=== PATIENT | female | born 1940 | race Caucasian/White ===

== ENCOUNTER 2023-02-02 16:49 | Inpatient (IN) | payer MEDICARE, OTHER ==
[~2023-02-02 16:49] MED LIST: Iopamidol-370 76% 500 ML MDV (1 ML CHARGE) ONE
[2023-02-02] MEDS ORDERED: fentaNYL 50 mcg/mL 1 mL Vial ONE (17:19)
[2023-02-02] MEDS ORDERED: Ondansetron PF 4 MG/2 ML Vial ONE (17:26)
[2023-02-02 17:33] LABS: #Lymphocytes 1.5 thou/uL (1.20-3.40); #Neutrophils 9.2 thou/uL (1.40-6.50); %Basophils 0.4 % (0.0-1.0); %Eosinophils 0.1 % (0.0-10.0); %Lymphocytes 12.4 % (21.0-51.0); %Monocytes 8.9 % (0.0-10.0); %Neutrophils 78.3 % (42.0-75.0); Hemoglobin 12.4 g/dL (12.0-16.0); Mean Corpuscular HGB CONC 32.7 g/dL (32.0-36.0); Mean Corpuscular Hemoglobin 29.6 pg (27.0-31.0); Mean Corpuscular Volume 90.5 fl (78.0-98.0); Mean Platelet Volume 8.2 fL (7.4-10.4); Platelet Count 254 10x3/uL (130-400); White Blood Cell (WBC) Count 11.7 10x3/uL (4.8-10.8)
[2023-02-02 17:55] LABS: ALT (SGPT) 83 U/L (8-55); AST (SGOT) 95 U/L (5-34); Albumin 3.7 g/dL (3.4-4.8); Alkaline Phosphatase 77 U/L (40-110); Anion Gap 20 mmol/L (10-20); BUN (Urea Nitrogen) 56 mg/dL (9.8-20.1); Bilirubin, Direct 0.9 mg/dL (0.1-0.3); Bilirubin, Total 1.5 mg/dL (0.2-1.2); Calc. Creatinine Clearance 0 mL/min (70-130); Calcium 9.3 mg/dL (7.8-10.44); Carbon Dioxide 14 mmol/L (23-31); Chloride 104 mmol/L (98-107); Estimated GFR 52; Glucose 107 mg/dL (83-110); Potassium 4.8 mmol/L (3.5-5.1); Protein, Total 6.7 g/dL (5.8-8.1); Sodium 133 mmol/L (136-145)
[2023-02-02 18:33] LABS: CKMB 3.6 ng/mL (0-6.6)
[2023-02-02] MEDS ORDERED: Aspirin Chewable 81 MG TAB ONE (19:52)
[2023-02-02] MEDS ORDERED: Ondansetron ODT 4 MG TAB PO PRN (21:12)
[2023-02-02] MEDS ORDERED: Acetaminophen 650 MG Suppository PR PRN (21:12)
[2023-02-02] MEDS ORDERED: Ondansetron PF 4 MG/2 ML Vial IVP PRN (21:12)
[2023-02-02 22:09] LABS: Troponin I 0.304 ng/mL (< 0.028)
[2023-02-02 22:52] LABS: Lactic Acid 4.4 mmol/L (0.5-2.2)
[2023-02-02] MEDS ORDERED: Piperacillin/Tazobactam 3.375 GM in Sodium Chloride 0.9% 100 ML IVPB SCH (23:00)
[2023-02-03 01:07] LABS: Lactic Acid 1.9 mmol/L (0.5-2.2)
[2023-02-03 01:26] LABS: Troponin I 0.469 ng/mL (< 0.028)
[2023-02-03] MEDS: Piperacillin/Tazobactam 3.375 GM in Sodium Chloride 0.9% 100 ML IVPB SCH ×3 (03:47→20:37)
[2023-02-03 05:19] LABS: #Basophils 0.1 thou/uL (0.0-0.2); #Lymphocytes 1.1 thou/uL (1.20-3.40); #Monocytes 1.1 thou/uL (0.11-0.59); #Neutrophils 10.6 thou/uL (1.40-6.50); %Basophils 0.4 % (0.0-1.0); %Lymphocytes 8.8 % (21.0-51.0); %Monocytes 8.7 % (0.0-10.0); Hemoglobin 12.3 g/dL (12.0-16.0); Mean Corpuscular HGB CONC 33.9 g/dL (32.0-36.0); Mean Corpuscular Hemoglobin 30.8 pg (27.0-31.0); Mean Corpuscular Volume 90.7 fl (78.0-98.0); Mean Platelet Volume 8.4 fL (7.4-10.4); Platelet Count 249 10x3/uL (130-400); Red Blood Cell (RBC) Count 4.01 mill/uL (4.20-5.40); White Blood Cell (WBC) Count 12.9 10x3/uL (4.8-10.8)
[2023-02-03] MEDS: Acetaminophen 325 MG TAB PO PRN (05:21)
[2023-02-03 05:42] LABS: Anion Gap 20 mmol/L (10-20); BUN (Urea Nitrogen) 63 mg/dL (9.8-20.1); Calc. Creatinine Clearance 26 mL/min (70-130); Calcium 9.4 mg/dL (7.8-10.44); Carbon Dioxide 16 mmol/L (23-31); Chloride 102 mmol/L (98-107); Estimated GFR 41; Glucose 106 mg/dL (83-110); Magnesium 2.6 mg/dL (1.6-2.6); Sodium 133 mmol/L (136-145)
[2023-02-03 05:44] LABS: ALT (SGPT) 239 U/L (8-55); AST (SGOT) 339 U/L (5-34); Albumin 3.8 g/dL (3.4-4.8); Alkaline Phosphatase 77 U/L (40-110); Bilirubin, Direct 1.1 mg/dL (0.1-0.3); Bilirubin, Total 1.7 mg/dL (0.2-1.2); Lipase 24 U/L (8-78); Protein, Total 6.6 g/dL (5.8-8.1)
[2023-02-03] MEDS: Morphine 4 MG/ML VIAL SLOW IVP PRN (06:17)
[2023-02-03] MEDS: Aspirin Chewable 81 MG TAB PO SCH (08:54)
[2023-02-04] MEDS: Piperacillin/Tazobactam 3.375 GM in Sodium Chloride 0.9% 100 ML IVPB SCH ×3 (04:18→20:30)
[2023-02-04] MEDS ORDERED: Regadenoson 0.4 MG/5 ML SYRINGE ONE (08:31)
[2023-02-04] MEDS: Aspirin Chewable 81 MG TAB PO SCH (12:00)
[2023-02-04] MEDS: Acetaminophen 325 MG TAB PO PRN (20:27)
[2023-02-05] MEDS: Piperacillin/Tazobactam 3.375 GM in Sodium Chloride 0.9% 100 ML IVPB SCH ×3 (04:10→21:24)
[2023-02-05 05:02] LABS: #Lymphocytes 1.1 thou/uL (1.20-3.40); #Monocytes 1.3 thou/uL (0.11-0.59); #Neutrophils 12.8 thou/uL (1.40-6.50); %Basophils 0.2 % (0.0-1.0); %Eosinophils 0.1 % (0.0-10.0); %Monocytes 8.6 % (0.0-10.0); %Neutrophils 84.1 % (42.0-75.0); Mean Corpuscular HGB CONC 32.1 g/dL (32.0-36.0); Mean Corpuscular Hemoglobin 29.1 pg (27.0-31.0); Mean Corpuscular Volume 90.6 fl (78.0-98.0); Mean Platelet Volume 8.7 fL (7.4-10.4); Platelet Count 178 10x3/uL (130-400); RBC Distribution Width 15.2 % (11.5-14.5); Red Blood Cell (RBC) Count 4.13 mill/uL (4.20-5.40); White Blood Cell (WBC) Count 15.3 10x3/uL (4.8-10.8)
[2023-02-05 05:22] LABS: ALT (SGPT) 487 U/L (8-55); AST (SGOT) 494 U/L (5-34); Albumin 3.6 g/dL (3.4-4.8); Alkaline Phosphatase 81 U/L (40-110); Anion Gap 19 mmol/L (10-20); BUN (Urea Nitrogen) 74 mg/dL (9.8-20.1); Bilirubin, Direct 0.8 mg/dL (0.1-0.3); Bilirubin, Total 1.1 mg/dL (0.2-1.2); Calc. Creatinine Clearance 27 mL/min (70-130); Calcium 9.1 mg/dL (7.8-10.44); Carbon Dioxide 16 mmol/L (23-31); Chloride 105 mmol/L (98-107); Estimated GFR 43; Glucose 156 mg/dL (83-110); Magnesium 2.6 mg/dL (1.6-2.6); Phosphorus 3.9 mg/dL (2.3-4.7); Potassium 4.8 mmol/L (3.5-5.1); Protein, Total 6.3 g/dL (5.8-8.1); Sodium 135 mmol/L (136-145)
[2023-02-05] MEDS: Aspirin Chewable 81 MG TAB PO SCH (08:50)
[2023-02-05] MEDS ORDERED: Furosemide 40 MG/4 ML VIAL SLOW IVP SCH (23:30)
[2023-02-06] MEDS: Morphine 4 MG/ML VIAL SLOW IVP PRN ×2 (00:04→18:44)
[2023-02-06] MEDS: Piperacillin/Tazobactam 3.375 GM in Sodium Chloride 0.9% 100 ML IVPB SCH ×3 (04:11→21:33)
[2023-02-06] MEDS: Losartan 25 MG TAB PO SCH ×2 (09:06→09:09)
[2023-02-06] MEDS: Aspirin Chewable 81 MG TAB PO SCH (09:08)
[2023-02-06] MEDS ORDERED: Iopamidol 15 ML ONE (11:33)
[2023-02-06] MEDS ORDERED: Bupivacaine HCl 0.5%/Epinephrine 1:200,000/PF 30 ml Vial ONE (11:33)
[2023-02-06] MEDS ORDERED: Lidocaine 1% MPF 2 ML VIAL ONE (11:45)
[2023-02-06] MEDS ORDERED: Piperacillin/Tazobactam 3.375 GM VIAL ONE (12:08)
[2023-02-06] MEDS ORDERED: Sodium Chloride 0.9% 100 ML ONE (12:08)
[2023-02-06] MEDS ORDERED: Milrinone Lactate/D5W 20 MG in Premix Bag 1 BAG IV SCH (12:30)
[2023-02-06] MEDS ORDERED: EPINEPHrine 4 MG in Dextrose 5% in Water 250 ML IVP SCH (12:30)
[2023-02-06] MEDS ORDERED: Vasopressin 20 UNITS, Admixture Fee 1 EACH in Sodium Chloride 0.9% 50 ML IV SCH (12:30)
[2023-02-06] MEDS ORDERED: NOREPINEPHRINE 8 MG/250 ML-D5W 250 ML IVPB SCH (12:30)
[2023-02-06] MEDS ORDERED: fentaNYL 50 mcg/mL 1 mL Vial ONE ×2 (12:43→15:38)
[2023-02-06] MEDS ORDERED: Midazolam HCl 2 mg/2 ml Vial ONE (13:03)
[2023-02-06] MEDS ORDERED: Rocuronium Bromide 10 MG/ML (10ML VIAL) ONE (13:32)
[2023-02-06] MEDS ORDERED: Ondansetron PF 4 MG/2 ML Vial ONE (13:32)
[2023-02-06 14:13] LABS: INR-International Normal Ratio 1.9; Prothrombin Time 22.8 sec (12.0-14.7)
[2023-02-06] MEDS ORDERED: SUGAMMADEX SODIUM 200 MG/2 ML VIAL ONE (14:43)
[2023-02-06] MEDS ORDERED: Promethazine HCl 25 MG/ML VIAL IM PRN ×2 (15:32→15:33)
[2023-02-06] MEDS ORDERED: Ondansetron HCl/PF 4 MG/2 ML Vial IVP PRN ×2 (15:32→15:33)
[2023-02-06] MEDS ORDERED: Morphine 4 MG/ML VIAL SLOW IVP PRN ×2 (19:45→22:13)
[2023-02-06] MEDS ORDERED: Albuterol 200 PUFF (6.7GM INHALER) INH PRN (20:46)
[2023-02-06] MEDS ORDERED: traMADol HCl 50 MG TAB PO PRN ×2 (20:48)
[2023-02-06 21:18] LABS: Hemoglobin 10.7 g/dL (12.0-16.0); Mean Corpuscular HGB CONC 29.8 g/dL (32.0-36.0); Mean Corpuscular Hemoglobin 27.4 pg (27.0-31.0); Mean Corpuscular Volume 91.8 fl (78.0-98.0); Mean Platelet Volume 8.9 fL (7.4-10.4); Platelet Count 113 10x3/uL (130-400); RBC Distribution Width 15.2 % (11.5-14.5); Red Blood Cell (RBC) Count 3.89 mill/uL (4.20-5.40); White Blood Cell (WBC) Count 17.9 10x3/uL (4.8-10.8)
[2023-02-06 21:36] LABS: Anion Gap 16 mmol/L (10-20); BUN (Urea Nitrogen) 77 mg/dL (9.8-20.1); Calc. Creatinine Clearance 27 mL/min (70-130); Calcium 8.3 mg/dL (7.8-10.44); Carbon Dioxide 19 mmol/L (23-31); Chloride 110 mmol/L (98-107); Estimated GFR 42; Glucose 132 mg/dL (83-110); Magnesium 2.4 mg/dL (1.6-2.6); Phosphorus 4.2 mg/dL (2.3-4.7); Potassium 3.5 mmol/L (3.5-5.1); Sodium 141 mmol/L (136-145)
[2023-02-06 21:48] LABS: Band 5 % (5-11); Burr Cells SLIGHT = 2-5 cells (100X) (0-1/hpf); Elliptocytes SLIGHT = 2-5 cells (100X) (0-1/hpf); Hypochromia SLIGHT = 6-15 cells (100X) (0-5/hpf); Lymphocytes 1 % (21-51); MDiff Complete? YES; Monocytes 11 % (0-10); Neutrophil 83 % (42-75); Nucleated RBC 2 % (0); Platelet Morphology Comment Appears Decreased; Polychromasia SLIGHT = 2-3 cells (100X) (0-2/hpf); Target Cells SLIGHT = 2-5 cells (100X) (0-1/hpf)
[2023-02-06] MEDS ORDERED: Potassium Chloride 20 MEQ in Premix Bag 1 BAG IVPB SCH (22:30)
[2023-02-07] MEDS: Acetaminophen 325 MG TAB PO SCH ×4 (00:57→17:40)
[2023-02-07 01:45] LABS: Actual Bicarbonate (HCO3a) 21.2 mEq/L (22-28); Base Excess (BEa) -4.6 mEq/L (-2.0 to +3.0); CO2 Tension 42.1 mmHg (35.0-45.0); Calcium, Ionized (arterial) 1.18 mmol/L (1.12-1.30); Carboxyhemoglobin (COHb) 0.8 gm% (0.0-3.0); Hemoglobin (Hb) 11.5 g/dL (12.0-16.0); Potassium - ABG Lab 4.24 mmol/L (3.70-5.30)
[2023-02-07 01:46] LABS: Puncture Site Arterial Line
[2023-02-07 01:47] LABS: ALV-art Gradient 60.015 mmHg (0-20)
[2023-02-07 04:31] LABS: #Lymphocytes 0.6 thou/uL (1.20-3.40); #Monocytes 1.1 thou/uL (0.11-0.59); #Neutrophils 14.4 thou/uL (1.40-6.50); %Lymphocytes 3.8 % (21.0-51.0); %Monocytes 6.8 % (0.0-10.0); %Neutrophils 89.4 % (42.0-75.0); Hemoglobin 10.4 g/dL (12.0-16.0); Mean Corpuscular HGB CONC 30.1 g/dL (32.0-36.0); Mean Corpuscular Hemoglobin 27.6 pg (27.0-31.0); Mean Corpuscular Volume 91.6 fl (78.0-98.0); Mean Platelet Volume 8.9 fL (7.4-10.4); Platelet Count 106 10x3/uL (130-400); RBC Distribution Width 15.3 % (11.5-14.5); Red Blood Cell (RBC) Count 3.77 mill/uL (4.20-5.40); White Blood Cell (WBC) Count 16.1 10x3/uL (4.8-10.8)
[2023-02-07] MEDS: Piperacillin/Tazobactam 3.375 GM in Sodium Chloride 0.9% 100 ML IVPB SCH ×3 (04:46→20:57)
[2023-02-07 05:09] LABS: ALT (SGPT) 570 U/L (8-55); AST (SGOT) 470 U/L (5-34); Albumin 2.9 g/dL (3.4-4.8); Alkaline Phosphatase 48 U/L (40-110); Anion Gap 14 mmol/L (10-20); BUN (Urea Nitrogen) 75 mg/dL (9.8-20.1); Bilirubin, Total 1.1 mg/dL (0.2-1.2); Calc. Creatinine Clearance 31 mL/min (70-130); Calcium 8.2 mg/dL (7.8-10.44); Carbon Dioxide 22 mmol/L (23-31); Chloride 111 mmol/L (98-107); Estimated GFR 48; Globulin 2.2 g/dL (2.4-3.5); Glucose 117 mg/dL (83-110); Magnesium 2.6 mg/dL (1.6-2.6); Phosphorus 3.5 mg/dL (2.3-4.7); Protein, Total 5.1 g/dL (5.8-8.1); Sodium 143 mmol/L (136-145)
[2023-02-07] MEDS: Aspirin Chewable 81 MG TAB PO SCH ×2 (08:44→10:41)
[2023-02-07] MEDS: Losartan 25 MG TAB PO SCH ×2 (08:44→10:42)
[2023-02-07] MEDS: Morphine 2 MG/ML VIAL SLOW IVP SCH ×2 (11:52→16:30)
[2023-02-07] MEDS ORDERED: Haloperidol Lactate 5 MG/ML VIAL IM SCH (12:45)
[2023-02-07] MEDS ORDERED: Furosemide 40 MG/4 ML VIAL SLOW IVP SCH (21:15)
[2023-02-07 21:30] LABS: #Lymphocytes 0.6 thou/uL (1.20-3.40); #Monocytes 0.8 thou/uL (0.11-0.59); #Neutrophils 16.4 thou/uL (1.40-6.50); %Lymphocytes 3.2 % (21.0-51.0); %Monocytes 4.3 % (0.0-10.0); %Neutrophils 92.4 % (42.0-75.0); Hemoglobin 10.5 g/dL (12.0-16.0); Mean Corpuscular HGB CONC 30.7 g/dL (32.0-36.0); Mean Corpuscular Hemoglobin 28.9 pg (27.0-31.0); Mean Platelet Volume 8.6 fL (7.4-10.4); Platelet Count 98 10x3/uL (130-400); RBC Distribution Width 15.2 % (11.5-14.5); Red Blood Cell (RBC) Count 3.62 mill/uL (4.20-5.40); White Blood Cell (WBC) Count 17.7 10x3/uL (4.8-10.8)
[2023-02-07 22:42] LABS: Base Excess (BEa) -14.8 mEq/L (-2.0 to +3.0); CO2 Tension 37.2 mmHg (35.0-45.0); Calcium, Ionized (arterial) 1.15 mmol/L (1.12-1.30); Carboxyhemoglobin (COHb) 0.8 gm% (0.0-3.0); Hematocrit-ABG 34 % (36.0-47.0); Hemoglobin (Hb) 11.4 g/dL (12.0-16.0); Potassium - ABG Lab 5.12 mmol/L (3.70-5.30)
[2023-02-07 23:10] LABS: Anion Gap 25 mmol/L (10-20); Calc. Creatinine Clearance 20 mL/min (70-130); Carbon Dioxide 14 mmol/L (23-31); Chloride 110 mmol/L (98-107); Estimated GFR 28; Glucose 52 mg/dL (83-110); Potassium 5.2 mmol/L (3.5-5.1); Sodium 145 mmol/L (136-145)
[2023-02-07 23:10] LABS: Puncture Site LRA
[2023-02-07 23:12] LABS: BUN (Urea Nitrogen) 85 mg/dL (9.8-20.1)
[2023-02-07 23:13] LABS: Calcium 9.2 mg/dL (7.6-10.4); Magnesium 2.9 mg/dL (1.6-2.6); Phosphorus 5.5 mg/dL (2.3-4.7)
[2023-02-07] MEDS ORDERED: Dextrose 50% Abboject 50 ML SYRINGE ONE (23:13)
[2023-02-07] MEDS ORDERED: Dextrose 50% Abboject 50 ML SYRINGE IVP PRN (23:30)
[2023-02-07] MEDS ORDERED: Sodium Bicarb 50 MEQ/50 ML VIAL IVP SCH (23:30)
[2023-02-07] MEDS ORDERED: Dextrose 5% in Water 1,000 ML IV PRN (23:30)
[2023-02-08] MEDS ORDERED: DOBUTamine 500 mg/250 ml 250 ML IVPB SCH (00:30)
[2023-02-08] MEDS: Acetaminophen 325 MG TAB PO SCH ×2 (00:38→06:29)
[2023-02-08] MEDS: Piperacillin/Tazobactam 3.375 GM in Sodium Chloride 0.9% 100 ML IVPB SCH ×2 (04:52→15:53)
[2023-02-08 05:51] LABS: Hemoglobin 9.6 g/dL (12.0-16.0); Mean Corpuscular HGB CONC 30.8 g/dL (32.0-36.0); Mean Corpuscular Hemoglobin 28.7 pg (27.0-31.0); RBC Distribution Width 15.3 % (11.5-14.5); Red Blood Cell (RBC) Count 3.34 mill/uL (4.20-5.40)
[2023-02-08 06:18] LABS: ALT (SGPT) 863 U/L (8-55); AST (SGOT) 1426 U/L (5-34); Albumin 3.4 g/dL (3.4-4.8); Alkaline Phosphatase 79 U/L (40-110); Anion Gap 30 mmol/L (10-20); BUN (Urea Nitrogen) 91 mg/dL (9.8-20.1); Bilirubin, Total 2.5 mg/dL (0.2-1.2); Calc. Creatinine Clearance 18 mL/min (70-130); Calcium 8.9 mg/dL (7.8-10.44); Carbon Dioxide 14 mmol/L (23-31); Chloride 110 mmol/L (98-107); Estimated GFR 24; Glucose 83 mg/dL (83-110); Magnesium 2.8 mg/dL (1.6-2.6); Phosphorus 5.3 mg/dL (2.3-4.7); Potassium 4.6 mmol/L (3.5-5.1); Protein, Total 5.4 g/dL (5.8-8.1); Sodium 149 mmol/L (136-145)
[2023-02-08 06:53] LABS: Band 12 % (5-11); Lymphocytes 1 % (21-51); MDiff Complete? YES; Mean Platelet Volume 9.7 fL (7.4-10.4); Monocytes 3 % (0-10); Neutrophil 84 % (42-75); Nucleated RBC 3 % (0); Platelet Count 75 10x3/uL (130-400); Platelet Morphology Comment Appears Decreased; White Blood Cell (WBC) Count 19.2 10x3/uL (4.8-10.8)
[2023-02-08] MEDS: Heparin 5,000 UNITS/ML VIAL SC SCH ×2 (09:39→21:08)
[2023-02-08 10:29] LABS: O2 Tension (PaO2), arterial 58.9 mmHg (> 60.0); pH, Arterial 7.159 (7.35-7.45)
[2023-02-08 10:30] LABS: Actual Bicarbonate (HCO3a) 12.9 mEq/L (22-28)
[2023-02-08] MEDS ORDERED: Furosemide 40 MG/4 ML VIAL SLOW IVP SCH (10:30)
[2023-02-08 12:48] VITALS: BP 106/58
[2023-02-08] MEDS: Morphine 2 MG/ML VIAL SLOW IVP PRN ×2 (13:44→17:15)
[2023-02-08] MEDS: Losartan 25 MG TAB PO SCH (14:19)
[2023-02-08] MEDS: Saccharomyces boulardii 250 MG CAP PO SCH (14:20)
[2023-02-08 20:09] LABS: Hemoglobin 9.7 g/dL (12.0-16.0); Mean Corpuscular HGB CONC 33.8 g/dL (32.0-36.0); Mean Corpuscular Hemoglobin 30.7 pg (27.0-31.0); Mean Platelet Volume 9.6 fL (7.4-10.4); Platelet Count 71 10x3/uL (130-400); RBC Distribution Width 15.5 % (11.5-14.5); Red Blood Cell (RBC) Count 3.15 mill/uL (4.20-5.40); White Blood Cell (WBC) Count 24.9 10x3/uL (4.8-10.8)
[2023-02-08 20:34] LABS: Anisocytosis SLIGHT = 6-15 cells (100X) (0-5/hpf); Band 2 % (5-11); Lymphocytes 2 % (21-51); MDiff Complete? YES; Monocytes 3 % (0-10); Neutrophil 93 % (42-75); Nucleated RBC 5 % (0); Ovalocytes SLIGHT = 2-5 cells (100X) (0-1/hpf); Platelet Morphology Comment Appears Decreased; Polychromasia MODERATE = 3-4 cells (100X) (0-2/hpf); Target Cells SLIGHT = 2-5 cells (100X) (0-1/hpf); Tear Drops SLIGHT = 2-5 cells (100X) (0-1/hpf)
[2023-02-08 20:41] LABS: Anion Gap 18 mmol/L (10-20); BUN (Urea Nitrogen) 103 mg/dL (9.8-20.1); Calc. Creatinine Clearance 16 mL/min (70-130); Calcium 8.6 mg/dL (7.8-10.44); Carbon Dioxide 24 mmol/L (23-31); Chloride 113 mmol/L (98-107); Estimated GFR 22; Glucose 167 mg/dL (83-110); Magnesium 2.7 mg/dL (1.6-2.6); Sodium 151 mmol/L (136-145)
[2023-02-08] MEDS ORDERED: Famotidine/PF 20 mg/2ml Vial SLOW IVP SCH (21:00)
[2023-02-08] MEDS: Metoprolol Tartrate 25 MG TAB PER TUBE SCH (21:08)
[2023-02-09] MEDS: Piperacillin/Tazobactam 3.375 GM in Sodium Chloride 0.9% 100 ML IVPB SCH (03:57)
[2023-02-09 04:48] LABS: Hemoglobin 9.6 g/dL (12.0-16.0); Mean Corpuscular HGB CONC 33.2 g/dL (32.0-36.0); Mean Corpuscular Hemoglobin 30.2 pg (27.0-31.0); Mean Corpuscular Volume 90.8 fl (78.0-98.0); Mean Platelet Volume 9.6 fL (7.4-10.4); Platelet Count 75 10x3/uL (130-400); RBC Distribution Width 15.5 % (11.5-14.5); Red Blood Cell (RBC) Count 3.17 mill/uL (4.20-5.40); White Blood Cell (WBC) Count 24.8 10x3/uL (4.8-10.8)
[2023-02-09 05:10] LABS: ALT (SGPT) 1331 U/L (8-55); AST (SGOT) 2378 U/L (5-34); Albumin 2.9 g/dL (3.4-4.8); Alkaline Phosphatase 66 U/L (40-110); Anion Gap 15 mmol/L (10-20); BUN (Urea Nitrogen) 105 mg/dL (9.8-20.1); Bilirubin, Total 1.7 mg/dL (0.2-1.2); Calc. Creatinine Clearance 17 mL/min (70-130); Calcium 8.6 mg/dL (7.8-10.44); Carbon Dioxide 27 mmol/L (23-31); Chloride 112 mmol/L (98-107); Estimated GFR 23; Globulin 2.1 g/dL (2.4-3.5); Glucose 181 mg/dL (83-110); Magnesium 2.8 mg/dL (1.6-2.6); Phosphorus 3.2 mg/dL (2.3-4.7); Potassium 3.5 mmol/L (3.5-5.1); Sodium 150 mmol/L (136-145)
[2023-02-09 05:16] VITALS: BMI 28.9
[2023-02-09 05:18] LABS: Anisocytosis SLIGHT = 6-15 cells (100X) (0-5/hpf); Crenated RBC SLIGHT = 1-5 cells (100X) (None Seen); Hypochromia SLIGHT = 6-15 cells (100X) (0-5/hpf); Lymphocytes 3 % (21-51); MDiff Complete? YES; Monocytes 4 % (0-10); Neutrophil 93 % (42-75); Nucleated RBC 1 % (0); Ovalocytes SLIGHT = 2-5 cells (100X) (0-1/hpf); Platelet Morphology Comment Appears Decreased; Polychromasia SLIGHT = 2-3 cells (100X) (0-2/hpf)
[2023-02-09 08:11] VITALS: TEMP 98.5
[2023-02-09] MEDS: Morphine 2 MG/ML VIAL SLOW IVP PRN (08:43)
[2023-02-09] MEDS: Saccharomyces boulardii 250 MG CAP PO SCH (08:44)
[2023-02-09] MEDS: Metoprolol Tartrate 25 MG TAB PER TUBE SCH (08:44)
[2023-02-09] MEDS: Losartan 25 MG TAB PO SCH (08:44)
== END 2023-02-09 12:18 | disposition hospice, inpatient (51) | DRG 853 ==
LOC: ERS 16:49 → 2NO 20:50 → CCU 02-06 15:47
PROVIDERS: ADMIT Student in an Organized Health Care Education/Training Program; ATTEND Internal Medicine
PROC: 3E03329 Introduction of Other Anti-infective into Peripheral Vein, Percutaneous Approach (ICD-10-PCS; 2023-02-02)
PROC: 0FT44ZZ Resection of Gallbladder, Percutaneous Endoscopic Approach (ICD-10-PCS; principal; 2023-02-06)
PROC: 02HV33Z Insertion of Infusion Device into Superior Vena Cava, Percutaneous Approach (ICD-10-PCS; 2023-02-06)
DX: A41.9 Sepsis, unspecified organism (principal); I50.21 Acute systolic (congestive) heart failure; J96.00 Acute respiratory failure, unspecified whether with hypoxia or hypercapnia; K80.00 Calculus of gallbladder with acute cholecystitis without obstruction; I24.8 Other forms of acute ischemic heart disease; E87.1 Hypo-osmolality and hyponatremia; N17.9 Acute kidney failure, unspecified; E87.0 Hyperosmolality and hypernatremia; R65.20 Severe sepsis without septic shock; Z66 Do not resuscitate; I25.10 Atherosclerotic heart disease of native coronary artery without angina pectoris; G89.29 Other chronic pain; M54.9 Dorsalgia, unspecified; I44.7 Left bundle-branch block, unspecified; I25.5 Ischemic cardiomyopathy; E87.5 Hyperkalemia; E83.41 Hypermagnesemia; E83.39 Other disorders of phosphorus metabolism; F17.210 Nicotine dependence, cigarettes, uncomplicated; N18.2 Chronic kidney disease, stage 2 (mild); Z51.5 Encounter for palliative care; Z88.2 Allergy status to sulfonamides; Z88.1 Allergy status to other antibiotic agents; Z79.82 Long term (current) use of aspirin; Z79.899 Other long term (current) drug therapy; Z90.710 Acquired absence of both cervix and uterus; Z95.1 Presence of aortocoronary bypass graft
CPT/HCPCS: 36415; 36416; 36600; 71045; 74018; 74177; 76705; 78452; 80048; 80053; 80076; 82533; 82553; 82805; 83605; 83690; 83735; 83880; 84100; 84484; 85025; 85610; 85730; 86850; 86900; 86901; 88304; 93005; 93010; 93017; 93306; 94660; 96372; 96374; 96375; A9500; C1751; C1889; J1250; J1630; J1642; J1644; J1650; J1940; J2250; J2270; J2272; J2405; J2543; J2785; J3010; J3480; J3490; J7999; P9045; Q9967; S0028

== ENCOUNTER 2023-02-09 12:25 | Inpatient (IN) | payer OTHER ==
[2023-02-09 12:36] VITALS: BMI 28.8
[2023-02-09] MEDS ORDERED: Morphine 2 MG/ML VIAL SLOW IVP PRN (12:43)
[2023-02-09] MEDS ORDERED: Haloperidol Lactate 5 MG/ML VIAL SLOW IVP PRN (12:45)
[2023-02-09] MEDS ORDERED: Ondansetron PF 4 MG/2 ML Vial IVP PRN (12:45)
[2023-02-09] MEDS ORDERED: Promethazine HCl 25 MG SUPP PR PRN (12:45)
[2023-02-09] MEDS ORDERED: Acetaminophen 650 MG Suppository PR PRN (12:45)
[2023-02-09] MEDS ORDERED: Glycopyrrolate 0.4 MG/ 2 ML VIAL SLOW IVP PRN (12:45)
[2023-02-09] MEDS ORDERED: Bisacodyl 10 MG SUPP PR PRN (12:46)
[2023-02-09] MEDS: Lorazepam 2 MG/ML VIAL SLOW IVP PRN (13:05)
[2023-02-10] MEDS: Lorazepam 2 MG/ML VIAL SLOW IVP PRN (00:25)
[2023-02-10 08:51] VITALS: BP 71/38; TEMP 96.9
== END 2023-02-10 14:07 | disposition expired | DRG 951 ==
LOC: CCU 12:25 → MSONC 16:32
PROVIDERS: ADMIT Family Medicine; ATTEND Family Medicine
DX: Z51.5 Encounter for palliative care (principal); Z66 Do not resuscitate; A41.9 Sepsis, unspecified organism; I25.10 Atherosclerotic heart disease of native coronary artery without angina pectoris; K81.9 Cholecystitis, unspecified; N28.9 Disorder of kidney and ureter, unspecified; I50.9 Heart failure, unspecified; E88.09 Other disorders of plasma-protein metabolism, not elsewhere classified; Z90.49 Acquired absence of other specified parts of digestive tract; Z88.1 Allergy status to other antibiotic agents; Z88.2 Allergy status to sulfonamides
CPT/HCPCS: J2060; J2272